=== PATIENT | male | born 1960 | race Caucasian/White ===

== ENCOUNTER 2017-11-17 19:42 | Emergency (ER) | END 2017-11-17 21:38 | disposition home or self-care (01) ==

== ENCOUNTER 2017-12-01 12:06 | Emergency (ER) | END 2017-12-01 14:20 | disposition home or self-care (01) ==

== ENCOUNTER 2018-01-02 21:19 | Emergency (ER) | END 2018-01-03 01:02 | disposition home or self-care (01) ==

== ENCOUNTER 2019-04-12 02:02 | Emergency (ER) | payer OTHER ==
[~2019-04-12] VITALS: Ht 167.6 cm; Wt 85.5 kg
[~2019-04-12 02:02] MED LIST: CIPR500T4 PO; CYCL10TA7 PO; DICL100G37 TOP; HC30CR25 TOP; HYDR-3980 PO; HYDR-4011 PO; IBUP-1542 PO; IBUP800T48 PO; TAMS-14 PO; TRIA15CR55 TOP
[2019-04-12 02:07] VITALS: BP 165/77; PULSE 56; RESP 19; Ht 167.6 cm; Wt 85.5 kg
[2019-04-12] MEDS ORDERED: ASPIRIN 325 MG TAB PO ONE (04:00)
== END 2019-04-12 04:51 | disposition home or self-care (01) ==
LOC: FTE 02:02
DX: S46.911A Strain of unspecified muscle, fascia and tendon at shoulder and upper arm level, right arm, initial encounter (principal); I10 Essential (primary) hypertension; F17.210 Nicotine dependence, cigarettes, uncomplicated; R21 Rash and other nonspecific skin eruption; R07.9 Chest pain, unspecified; X58.XXXA Exposure to other specified factors, initial encounter; Y92.9 Unspecified place or not applicable
CPT/HCPCS: 71045; 76705; 80053; 81001; 83690; 84484; 85025; 85610; 85730; 93005; Z7502; Z7610